=== PATIENT | male | born 1980 | race African-American/Black ===

== ENCOUNTER 2016-08-01 16:30 | Emergency (ER) | payer MEDICAID ==
[~2016-08-01] VITALS: Ht 193 cm; Wt 93.9 kg
[2016-08-01 16:35] VITALS: BP 129/75
[2016-08-01] MEDS ORDERED: HYDROCODONE/APAP 5/325MG 1 EACH TABLET PO STA (16:40)
[2016-08-01] MEDS ORDERED: CLINDAMYCIN 900 MG/6 ML VIAL ONE (16:42)
[2016-08-01] MEDS ORDERED: CLINDAMYCIN HCL 150 MG CAPSULE PO STA (16:42)
[2016-08-01] MEDS ORDERED: HYDROCODONE/APAP 5/325MG 1 EACH TABLET ONE (16:42)
[2016-08-01] MEDS ORDERED: CLINDAMYCIN HCL 150 MG CAPSULE PO ONE (16:55)
[2016-08-01] MEDS ORDERED: CLINDAMYCIN 900 MG/6 ML VIAL IM ONE (17:00)
== END 2016-08-01 17:06 | disposition home or self-care (01) ==
LOC: ER 16:32
DX: K04.7 Periapical abscess without sinus (principal)
CPT/HCPCS: 99283; A4606; J3490; Z7610

== ENCOUNTER 2016-11-17 10:43 | Emergency (ER) | payer MEDICAID ==
[~2016-11-17] VITALS: Ht 195.6 cm; Wt 122.5 kg
[2016-11-17 10:50] VITALS: BP 123/82
== END 2016-11-17 11:15 | disposition home or self-care (01) ==
LOC: ER 10:45
DX: R07.89 Other chest pain (principal); F10.129 Alcohol abuse with intoxication, unspecified; F17.210 Nicotine dependence, cigarettes, uncomplicated
CPT/HCPCS: A4606; Z7610